=== PATIENT | female | born 1960 | race Caucasian/White ===

== ENCOUNTER 2023-01-31 09:38 | Emergency (ER) | payer OTHER, SELFPAY ==
--- NOTE | 2023-01-31 09:39 | ED.EYEPROB ---
HPI - Eye Problem General Chief complaint: Eye Problems Stated complaint: Left Eye Pain Time Seen by Provider: 01/31/23 09:39 Source: patient Mode of arrival: ambulatory Limitations: no limitations History of Present Illness HPI Narrative: Jolie is a 62-year-old female patient presenting to the clinic today with complaints of left eye pain 3-4 days. She reports she fell out of bed on Sunday or Sunday morning and hit her left eye either on a bedside table or a bedside chair. States she is having pain to the upper left corner of the eye. Eye is red. States that she has also had some watery discharge and blurry vision. Related Data Home Medications Medication Instructions Recorded Confirmed aspirin 81 mg tablet,delayed 81 mg PO DAILY 08/11/19 01/31/23 release caffeine 200 mg tablet 400 mg PO DAILY PRN fatigue 08/11/19 01/31/23 diltiazem HCl 360 mg capsule,24 360 mg PO DAILY 08/11/19 01/31/23 hr,extended release exenatide microspheres 2 mg/0.85 2 mg subcut WEEKLY 08/11/19 01/31/23 mL subcutaneous auto-injector (iRewind) lisinopril 20 2 tablet PO DAILY 08/11/19 01/31/23 mg-hydrochlorothiazide 12.5 mg tablet lovastatin 40 mg tablet 40 mg PO DAILY 08/11/19 01/31/23 metformin 1,000 mg tablet 1,000 mg PO BID 08/11/19 01/31/23 tramadol 50 mg tablet 50 mg PO Q6H PRN Pain 08/11/19 01/31/23 ertugliflozin 15 mg tablet 15 mg PO DAILY 09/23/19 01/31/23 (Steglatro) Allergies Allergy/AdvReac Type Severity Reaction Status Date / Time No Known Allergies Allergy Mild Verified 01/31/23 09:43 Review of Systems Review of Systems: Pertinent positives per HPI. Patient denies any fever, chills, rash, headache, dizziness, cough, runny nose, sore throat, shortness of breath, chest pain, palpitations, nausea, vomiting, diarrhea, constipation, abdominal pain, or any urinary issues. [facility] Past Medical History Medical History Diabetes Hypercholesterolemia Hypertension Comments At the time of my signature, I reviewed and agree with the nursing past medical, surgical, social, and family history. There is no relevant family history pertinent to the patient complaint. Exam Narrative: General: Well-developed, well nourished, in no apparent distress Head: Normocephalic, atraumatic Eyes: Pupils equally round and reactive to light bilaterally, EOM intact, right sclera and conjunctive clear, left sclera and conjunctiva injected, watery discharge, small abrasion noted to the fold of the left upper inner eyelid, Wood's lamp exam was performed on left eye and there was no sign of corneal abrasion or foreign body upon exam Ears: TMs intact and clear, ear canals clear, no drainage, grossly hearing normal. Nose: Nares patent, no discharge, no inflammation, no sinus tenderness. Mouth: Oropharynx without lesions or masses, good dentition, MMM. Neck: Supple, trachea midline, no enlargement of anterior or posterior cervical nodes, no thyroid masses or goiter palpable. Cardio: Regular rate and rhythm, s1 and s2 normal, no murmur appreciated. Resp: Clear to auscultation bilaterally anteriorly and posteriorly, no rhonchi, rales, wheezing or rubs Course Course Emergency Course: Portions of this record may have been created with voice recognition software. Level of Care: Express Care Visit Vital Signs Vital signs: Vital signs reviewed Procedures FB Removal Eye Foreign Body #1: Foreign Body Removal Narrative: Topical anesthetic was instilled with good anesthesia using 1gtt of opth anesthetic agent (tetracaine). Fluorescein stain of the Left eye was performed without uptake of dye. No epithelial defect was noted. NO FB, ulcer or dendritic lesions. Upper lid was everted and no FB or lesions were noted. NO Luba sign. Normal saline irrigation eye solution was performed and the patient tolerated the procedure well, no adverse reaction or complicati
[2023-01-31 09:46] VITALS: BP 160/74; PULSE 76; RESP 20; TEMP 36.6; O2SAT 99
== END 2023-01-31 10:30 | disposition home or self-care (01) ==
LOC: EXPCOLL 09:42
PROVIDERS: Emergency Provider Nurse Practitioner Family; PCP Family Medicine
DX: H57.12 Ocular pain, left eye (principal); E11.9 Type 2 diabetes mellitus without complications; E78.00 Pure hypercholesterolemia, unspecified; I10 Essential (primary) hypertension; Z79.82 Long term (current) use of aspirin
CPT/HCPCS: 99213; A9270; G0463